=== PATIENT | female | born 1940 | race Caucasian/White ===

== ENCOUNTER 2018-05-19 15:46 | Outpatient (CLI) | payer OTHER ==
--- NOTE | 2018-05-19 16:15 | XRAY Report ---
Reason: COUGH,WHEEZING,FEVER Procedure Date: 05/19/2018 Accession Number: [id number] / [id number] Procedure: XR - Chest 2 View X-Ray CPT Code: 11466 FULL RESULT: EXAM: CHEST RADIOGRAPHY EXAM DATE: 05/19/2018 03:57 PM. CLINICAL HISTORY: COUGH,WHEEZING,FEVER. COMPARISON: None. TECHNIQUE: 2 views. FINDINGS: Lungs/Pleura: No definite localized infiltrate, consolidation, effusion, or pneumothorax. Mediastinum: Heart and mediastinal contours are unremarkable. Other: Degenerative changes. Surgical clips in left axilla and breast. IMPRESSION: No acute disease. RADIA The call report notification system was initiated by Dr. Taj Carr at 04:13 PM on 05/19/2018.
== END 2018-05-19 15:47 | disposition home or self-care (01) ==
LOC: DI 15:46
PROVIDERS: ATTEND Family Medicine
DX: R05 Cough (principal); R09.89 Other specified symptoms and signs involving the circulatory and respiratory systems; R06.2 Wheezing; R50.9 Fever, unspecified
CPT/HCPCS: 71046

== ENCOUNTER 2018-12-22 08:10 | Outpatient (CLI) | payer OTHER ==
[2018-12-22 17:56] LABS: CHOL/HDL RATIO 4.4 (<4.4); CHOLESTEROL 287 mg/dL; HDL CHOLESTEROL 65 mg/dL; LDL CHOLESTEROL,CALCULATED 178 mg/dL; LDL/HDL RATIO 2.7 (<4.4); VLDL CHOLESTEROL 44 mg/dL
[2018-12-22 18:04] LABS: THYROID STIMULATING HORMONE 1.45 uIU/mL (0.34-5.60)
[2018-12-22 18:06] LABS: FREE T4 (FREE THYROXINE) 0.79 ng/dL (0.58-1.64)
[2018-12-22 18:11] LABS: FERRITIN 136.9 ng/mL (11.0-306.8); TOTAL T3 0.83 ng/mL (0.87-1.78)
[2018-12-22 18:17] LABS: HB2 TOTAL 14.7 g/dL; HEMOGLOBIN A1C 0.52 g/dL; HEMOGLOBIN A1C % 5.4 % (4.6-6.2)
[2018-12-23 10:06] LABS: HOMOCYSTEINE 7.9 umol/L (<10.4)
== END 2018-12-22 08:11 | disposition home or self-care (01) ==
LOC: LAB.S 08:10
PROVIDERS: ATTEND Family Medicine
DX: E55.9 Vitamin D deficiency, unspecified (principal); R73.09 Other abnormal glucose; D64.9 Anemia, unspecified; R53.83 Other fatigue; E03.9 Hypothyroidism, unspecified; E78.5 Hyperlipidemia, unspecified
CPT/HCPCS: 36415; 80061; 82306; 82626; 82728; 83036; 83090; 83721; 84439; 84443; 84480; 84481; 84482

== ENCOUNTER 2020-09-19 08:18 | Inpatient (IN) | payer MEDICARE, OTHER ==
--- NOTE | 2020-09-19 08:28 | ED Physician Documentation ---
PD HPI CHEST PAIN - Stated complaint Stated Complaint: CHEST TIGHT/LOW HEART RATE - History obtained from History obtained from: Patient - History of Present Illness Timing - onset: How many days ago (2-3 days of chest discomfort low anterior just below breasts, both left and right. No abd pain. Also noted on her smart watch that her HR was 40s this morning, usually is 60-80.) Timing - onset during: Rest, Light activity. No: Exertion Timing - duration: Minutes (tightness come and go initially, but more consistent since yesterday) Timing - details: Gradual onset, Still present, Waxing and waning Quality: Pressure, Tightness. No: Sharp, Tearing Location: Left chest (across the lower chest both sides, just under the breasts.), Right chest Radiation: No: Jaw, Neck, Back Improved by: No: Rest Worsened by: No: Exertion, Inspiration, Eating Associated symptoms: General Weakness. No: Shortness of air, Nausea, Feeling faint / dizzy, Palpitations (did not feel irregular heart rate but her smart watch noted that her heart rate was about 120 for short time during sleep last night and this moring was having episodes slow HR down to 40s without change in symptoms.) Similar symptoms before: Has not had sx before Recently seen: Not recently seen Review of Systems Constitutional: denies: Fever, Chills Nose: denies: Rhinorrhea / runny nose, Congestion Throat: denies: Sore throat Cardiac: reports: Chest pain / pressure. denies: Palpitations (noted her heart rate to be in 40s part of the morning. Watch HR monitor showed her HR to be about 120 for part of the night while she was sleeping.), Pedal edema, Calf pain Respiratory: denies: Cough GI: denies: Abdominal Pain, Nausea, Vomiting, Diarrhea Skin: denies: Rash Musculoskeletal: denies: Neck pain, Back pain Neurologic: denies: Focal weakness, Numbness, Near syncope, Confused, Headache PD PAST MEDICAL HISTORY - Past Medical History Cardiovascular: None Respiratory: None Neuro: None Endocrine/Autoimmune: None - Present Medications Home Medications: Ambulatory Orders Medication Instructions Recorded Confirmed No Known Home Medications 09/19/20 09/19/20 - Allergies Allergies/Adverse Reactions: Allergies Allergy/AdvReac Type Severity Reaction Status Date / Time Egg Derived Allergy Rash Verified 09/19/20 08:44 influenza virus vacc Allergy Itching Verified 09/19/20 08:44 trivalent, split PD ED PE NORMAL - Vitals Vital signs reviewed: Yes - General General: Alert and oriented X 3, No acute distress, Well developed/nourished - Neck Neck: Supple, no meningeal sign, No adenopathy - Cardiac Cardiac: RRR, Other (1/6 murmur left chest) - Respiratory Respiratory: Clear bilaterally - Abdomen Abdomen: Soft, Non tender - Derm Derm: Normal color, Warm and dry - Extremities Extremities: No tenderness to palpate, No edema, No calf tenderness / cord - Neuro Neuro: Alert and oriented X 3, No motor deficit, Normal speech Eye Opening: Spontaneous Motor: Obeys Commands Verbal: Oriented GCS Score: 15 Results - Vitals Vitals: Vital Signs - 24 hr 09/19/20 09/19/20 09/19/20 08:30 08:55 09:33 Temperature 36.4 C L Heart Rate 76 71 46 L Respiratory 21 17 15 Rate Blood Pressure 190/88 H 190/88 H 125/73 O2 Saturation 97 100 98 Oxygen O2 Source Room air - EKG (time done) 08:27 Rate: Rate (enter#) (64) Rhythm: NSR Reardan: Normal Intervals: Normal TN QRS: Normal Ischemia: Normal ST segments. No: ST elevation c/w ischemia, ST depression, T wave inversion (but flattened diffusely) 09:45 Rate: Rate (enter#) (86) Rhythm: Sinus bradycardia Reardan: Normal Intervals: Normal TN QRS: Normal Ischemia: Normal ST segments. No: ST elevation c/w ischemia, ST depression - Labs Labs: Laboratory Tests 09/19/20 09/19/20 09/19/20 09:07 09:07 09:07 WBC 5.2 RBC 4.58 Hgb 14.5 Hct 43.3 MCV 94.5 MCH 31.7 H MCHC 33.5 RDW 11.9 L Plt Count 289 MPV 9.3 Neut # (Auto) 2.7 Lymph # (Auto) 2.0 Crane # (Auto) 0.4 Eos # (Auto) 0.1 Baso # (Auto) 0.1 Absolute Nucleated RBC 0.00 Nucleated RBC % 0.0 Sodium 139 Potassium 4.1 Chloride 104 Carbon Dioxide 26 Anion Gap 9.0 BUN 18 Creatinine 0.8 Estimated GFR (MDRD) 70 L Glucose 107 H Calcium 9.2 Magnesium 2.2 Total Bilirubin 0.8 AST 24 ALT 22 Alkaline Phosphatase 64 Troponin I High Sens 10.2 B-Natriuretic Peptide Total Protein 6.7 Albumin 4.2 Globulin 2.5 Albumin/Globulin Ratio 1.7 Lipase 33 09/19/20 09:07 WBC RBC Hgb Hct MCV MCH MCHC RDW Plt Count MPV Neut # (Auto) Lymph # (Auto) Crane # (Auto) Eos # (Auto) Baso # (Auto) Absolute Nucleated RBC Nucleated RBC % Sodium Potassium Chloride Carbon Dioxide Anion Gap BUN Creatinine Estimated GFR (MDRD) Glucose Calcium Magnesium Total Bilirubin AST ALT Alkaline Phosphatase Troponin I High Sens B-Natriuretic Peptide 539 H Total Protein Albumin Globulin Albumin/Globulin Ratio Lipase - Rads (name of study) chest xray Radiology: Prelim report reviewed (no acute process), See rad report PD MEDICAL DECISION MAKING - ED course Complexity details: reviewed results, re-evaluated patient (She had imp;rovement in the chest discomfort with NTG. She had episode of HR going down to 40s, slowly and then back up to 60s after 5-10 minutes. No change in vector noted. She did not have symptoms with that. ), considered differential (chest discomfort, nonexertional with neg troponin. However, having intermittent bradycardia (Wenckebach?) so concern for ischemia. No medications to cause heart block. ), d/w patient Departure - Departure Disposition: ED Place in Observation Clinical Impression: Chest discomfort, Bradycardia Condition: Stable Record reviewed to determine appropriate education?: Yes Discharge Date/Time: 09/19/20 11:16
[2020-09-19] MEDS ORDERED: NITROGLYCERIN SL 0.4 MG TABLET SL STA (08:59)
[2020-09-19 09:13] LABS: BASOPHILS # (AUTO) 0.1 10^3/uL (0.0-0.1); BASOPHILS % (AUTO) 1.3 %; EOSINOPHILS # (AUTO) 0.1 10^3/uL (0.0-0.7); EOSINOPHILS % (AUTO) 1.7 %; HCT - HEMATOCRIT 43.3 % (37.0-47.0); HGB - HEMOGLOBIN 14.5 g/dL (12.0-16.0); LYMPHOCYTES % (AUTO) 37.5 %; MEAN CORPUSCULAR HEMOGLOBIN 31.7 pg (27.0-31.0); MEAN CORPUSCULAR HGB CONC 33.5 g/dL (32.0-36.0); MEAN CORPUSCULAR VOLUME 94.5 fL (81.0-99.0); MEAN PLATELET VOLUME 9.3 fL (7.9-10.8); MONOCYTES # (AUTO) 0.4 10^3/uL (0.0-1.0); MONOCYTES % (AUTO) 8.3 %; NEUTROPHILS # (AUTO) 2.7 10^3/uL (1.5-6.6); PLT - PLATELET COUNT 289 10^3/uL (130-450); RED BLOOD COUNT 4.58 10^6/uL (4.20-5.40); RED CELL DISTRIBUTION WIDTH 11.9 % (12.0-15.0); WHITE BLOOD COUNT 5.2 x10^3/uL (4.8-10.8)
[2020-09-19 09:29] LABS: ALBUMIN 4.2 g/dL (3.2-5.5); ALBUMIN/GLOBULIN RATIO 1.7 (1.0-2.2); BILIRUBIN,TOTAL 0.8 mg/dL (0.2-1.0); CALCIUM 9.2 mg/dL (8.5-10.3); CREATININE 0.8 mg/dL (0.4-1.0); MAGNESIUM 2.2 mg/dL (1.7-2.8); POTASSIUM 4.1 mmol/L (3.5-5.0); TOTAL PROTEIN 6.7 g/dL (6.7-8.2)
--- NOTE | 2020-09-19 10:01 | XRAY Report ---
PROCEDURE: Chest 1 View X-Ray INDICATIONS: Chest Pain TECHNIQUE: One view of the chest was acquired. COMPARISON: 2 view chest 05/19/2018 FINDINGS: Surgical changes and devices: None. Lungs and pleura: No pleural effusions or pneumothorax. Lungs are clear. Mediastinum: Mediastinal contours appear normal. Heart size is normal. Bones and chest wall: No suspicious bony lesions. Overlying soft tissues appear unremarkable. IMPRESSION: Surgical clips left lateral breast area, suggestive of prior breast carcinoma surgery. No evidence of metastatic disease. Source of current symptoms is not found. Reviewed by: Lazaro Clancy MD on 09/19/2020 9:59 AM PDT Approved by: Lazaro Clancy MD on 09/19/2020 9:59 AM PDT Station ID: [id number]
[2020-09-19] MEDS ORDERED: ONDANSETRON 4 MG/2 ML VIAL IVP PRN (10:13)
[2020-09-19] MEDS ORDERED: ACETAMINOPHEN 325 MG TABLET PO PRN (10:13)
[2020-09-19] MEDS ORDERED: MORPHINE 2 MG/ML CARPUJECT IVP PRN ×2 (10:13→11:59)
[2020-09-19] MEDS ORDERED: SODIUM CHLORIDE FLUSH 0.9% 10 ML SYRINGE IVP PRN (10:13)
[2020-09-19] MEDS ORDERED: ASPIRIN 325 MG TABLET PO STA (10:20)
--- NOTE | 2020-09-19 10:45 | HISTORY & PHYSICAL EXAMINATION ---
Chief Complaint - Chief Complaint Chief Complaint: chest tightness and bradycardia History of Present Illness - Admitted From Admitted From:: Pt - History Obtained From Records Reviewed: [facility] History obtained from: pt Exam Limitations: no - History of Present Illness HPI Comment/Other: This is a 79-years old female without significantly medical history who present to ER complain of chest tightness and bradycardia. pt report she had chest discomfort and chest tightness for 2-3 days. she report the discomfort locates bilateral low anterior and just below breasts. She denies shortness of breath, fever, chill, abdominal pain, nausea or vomiting. She report she usually had 60- 80 heart rate but she report her HR was 40s in this morning when she watch her Smart watch. Her initiated troponin was 10.2, in normal range. Chest x-ray show surgical clips left laterally breast area, suggestive of prior Breast carcinoma surgery, no evidence of metastatic disease, Source of currently symptoms is not found. First EKG show sinus rhythm at heart rate 64. Repeat EKG show Sinus bradycardia at HR 46. Patient reported she did not take any medication right now. she take her blood pressure medicine in the before but after she had diet control, she does not need blood pressure medicine. Discussed the care goal with patient, patient would like to have full code now. Pt state if she does not have quality life at the time, her son will make the decision for her. History - Past Medical History MRSA Hx?: No - Family & Social History Family History: Mother: , Father: Family History Comment/Other: Patient report her father at age 56 from heart failure. Her mother at the age 102. Her brother at age 81 from diabetic and heart failure Social History Notes: Patient reported she quit cigarette smoking about 40 years ago, she denied alcohol or drug issue Meds/Allgy - Home Medications Home Medications: Ambulatory Orders Medication Instructions Recorded Confirmed No Known Home Medications 09/19/20 09/19/20 - Allergies Allergies/Adverse Reactions: Allergies Allergy/AdvReac Type Severity Reaction Status Date / Time Egg Derived Allergy Rash Verified 09/19/20 08:44 influenza virus vacc Allergy Itching Verified 09/19/20 08:44 trivalent, split Review of Systems - Constitutional Constitutional: denies: Fatigue, Fever, Chills, Weakness, Poor appetite - Eyes Eyes: denies: Pain, Blurred vision, Field loss, Vision loss - Ears, Nose & Throat Ears, Nose & Throat: denies: Ear pain, Nosebleeds, Bleeding gums - Cardiovascular Cariovascular: reports: Chest pain. denies: Irregular heart rate, Palpitations, Edema, Lightheadedness, Syncope, Exertional dyspnea, Decr. exercise tolerance - Respiratory Respiratory: denies: Cough, Sputum production, Wheezing, Hemoptysis, Orthopnea, SOB at rest, SOB with exertion - Gastrointestinal Gastrointestinal: denies: Abdominal pain, Diarrhea, Black stools, Nausea, Vomiting - Genitourinary Genitourinary: denies: Dysuria, Incontinence, Flank pain - Musculoskeletal Musculoskeletal: denies: Muscle pain, Muscle aches, Limited range of motion - Integumentary Integumentary: denies: Rash, Lesions, Lumps - Neurological Neurological: denies: General weakness, Focal weakness, Headache, Dizziness, Numbness, Pre-existing deficit, Abnormal gait, Seizures, Incoordination, Slurred speech - Psychiatric Psychiatric: denies: Depression, Delusions - Endocrine Endocrine: denies: Polyuria - Hematologic/Lymphatic Hematologic/Lymphatic: denies: Anemia, Blood clots Prior Level of Functionality: Patient is independent at home Exam - Vital Signs Vital Signs: Vital Signs x48h Temp Pulse Resp BP Pulse Ox 09/19/20 09:33 46 L 15 125/73 98 09/19/20 08:55 71 17 190/88 H 100 09/19/20 08:30 36.4 C L 76 21 190/88 H 97 - Physical Exam General Appearance: positive: No acute distress, Alert. negative: Lethargic Eyes Bilateral: positive: Normal inspection, PERRL, No lid inflammation ENT: positive: ENT inspection nml, No signs of dehydration. negative: Purulent nasal drainage Neck: positive: Nml inspection, Trachea midline. negative: Thyromegaly, Tracheal deviation Respiratory: positive: Chest non-tender, No respiratory distress, Breath sounds nml. negative: Wheezes, Rales Cardiovascular: positive: Regular rate & rhythm, No murmur, Bradycardia. negative: Tachycardia, Systolic murmur, Diastolic murmur Peripheral Pulses: positive: 2+ Abdomen: positive: Non-tender, Nml bowel sounds, No distention. negative: Tenderness Back: positive: Nml inspection Skin: positive: Color nml, Warm, Dry. negative: Cyanosis Extremities: positive: Non-tender, Full ROM, Nml appearance. negative: No pedal edema Neurologic/Psychiatric: positive: Oriented x3, Motor nml, Sensation nml, M ood/affect nml. negative: Weakness, Sensory loss, Facial droop, Slurred/abnml speech, Depressed mood/affect Conclusion/Plan - Problem List (1) Chest discomfort Conclusion/Plan: Patient report chest discomfortable for 2 or 3 days. Patient denies shortness of breathing, abdominal pain, nausea, vomiting Associated with chest discomfortable. Chest discomfortable location at bilaterally below breast, No radiating pain. Initiate troponin is negative. We will repeat troponin test, we will do stress test for patient this afternoon, order Aspirin, Morphine and Nitro PRN, tele and vital sign monitor pt. (2) Bradycardia Conclusion/Plan: EKG once show Sinus bradycardia at heart rate 46. Patient denies dizziness, lightheaded. Patient did not take any beta-shar in the home. 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 (3) HTN (hypertension) Conclusion/Plan: Patient show elevated blood pressure, patient did not take any blood pressure medicine in the home, we will start with hydralazine PRN. Continue vital signs monitor for patient - Lab Results Fish Bones: 09/19/20 09:07 09/19/20 09:07 Core Measures - Anticipated LOS I expect patient to be DC'd or transferred within 96 hours.: Yes - DVT/VTE - Prophylaxis VTE/DVT Device ordered at admit?: Yes VTE/DVT Prophylaxis med ordered at admit?: Yes
[2020-09-19 11:24] LABS: B. PARAPERTUSSIS- RESP PCR PAN NOT DETECTED; B. PERTUSSIS- RESP PCR PANEL NOT DETECTED; C. PNEUMONIAE- RESP PCR PANEL NOT DETECTED; CORONAVIRUS 229E-RESP PCR NOT DETECTED; CORONAVIRUS HKU1-RESP PCR NOT DETECTED; CORONAVIRUS NL63-RESP PCR NOT DETECTED; CORONAVIRUS OC43-RESP PCR NOT DETECTED; HUMAN METAPNEUMOVIRUS NOT DETECTED; INFLUENZA A- RESP PCR PANEL NOT DETECTED; INFLUENZA B - RESP PCR PANEL NOT DETECTED; M. PNEUMONIAE- RESP PCR PANEL NOT DETECTED; PARAINFLUENZA VIRUS 1 NOT DETECTED; PARAINFLUENZA VIRUS 2 NOT DETECTED; PARAINFLUENZA VIRUS 3 NOT DETECTED; PARAINFLUENZA VIRUS 4 NOT DETECTED; RHINOVIRUS/ENTEROVIRUS NOT DETECTED; RSV- RESP PCR PANEL NOT DETECTED; SARS-CoV-2 -RESP PCR PANEL NOT DETECTED
[2020-09-19] MEDS ORDERED: NITROGLYCERIN SL 0.4 MG TABLET SL PRN (11:59)
[2020-09-19] MEDS ORDERED: hydrALAZINE INJ 20 MG/ML VIAL IVP PRN (13:04)
[2020-09-19] MEDS ORDERED: ASPIRIN 325 MG TABLET PO SCH (14:00)
--- NOTE | 2020-09-19 15:52 | CARDIAC PROCEDURE NOTE ---
Stress Test Report Service Date: 09/19/20 Indication for Test: Chest pain Cardiac Risk Factors: HTN (currently untreated), family history of heart disease, Hx of elevated cholesterol (also untreated). Type of Stress Test: ETT with Myocardial Perfusion Imaging Procedure: After signing informed consent, the patient underwent a Franky-protocol treadmill stress test with nuclear myocardial perfusion imaging. Resting heart rate: 75 Peak heart rate: 131 (91% predicted maximum hewart rate for age), then went into SVT at rate 160. Sitting resting blood pressure supine: 196/60, standing resting BP: 161/101 Peak BP: 227/88 The patient described no chest pain at rest. Then when she stood up she described 1-3/10 chest pain that was a "band-like pressure as if she had on a tight bra". This is the same feeling she has had nearly continuously for 7 days. We proceeded with stress testing. The patient exercised for 4 minutes and 28 sec on a Franky-protocol treadmill stress test. She achieved a peak heart rate of 131 (91% PMHR) and in early recovery (at 1 min-post exercise) she had an 18-beat run of SVT at a rate of 160. The patient had mild shortness of breath at peak exercise and no changes in her chest pain throughout exercise, rated 3/10 and it continued unchanged all throughout recovery. Blood pressure response to exercise was excessive. The patient described her perceived exertion as 14/20 at peak on the Hector scale. Resting EKG: Normal sinus rhythm, rate 75, U waves present, early R/S transition, flat T waves in diffuse leads. Patient had a 7 beat run of SVT pre-exercise, it's rate was 145. During exe rcise she had occasional PACs, a run of ventricular trigeminy, ventricular couplets at peak exercise and a run of SVT just after peak exercise, of 18 beats at a rate of 160. Peak EKG: No new ST segment changes, unchanged diffuse T wave flattening. Summary: 1) Abnormal resting EKG 2) Chest pain was present at rest, unchanged during exercise and continued in recovery. This is atypical for angina pain. 3) Nonspecific EKG changes develop are present at rest and are unchanged with exercise. 4) PSVT seen at rest. Ventricular couplets seen at peak stage of exercise. P SVT of longer duration seen at peak exercise/immediate recovery. 5) Patient is hypertensive at rest and with exercise. 6) Nuclear images were reported separately and showed: No areas of abnormal upt rylee to suggest ischemia or infarction, LVEF is hyperdynamic at 92%. 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 2) HTN, uncontrolled. 3) This patient's cardiac risk: Moderate. RECOMMENDATIONS (she is in Observation status in the hospital): 1) Start low-dose heart rate slowing meds while being monitored on telemetry, watching for severe bradycardia. 2) If has severe bradycardia, she will need transfer for insertion of a pacemaker.
[2020-09-19] MEDS ORDERED: SODIUM CHLORIDE 0.9% 1,000 ML IV SCH (17:00)
--- NOTE | 2020-09-19 17:00 | Nuclear Medicine Report ---
PROCEDURE: Rest and exercise myocardial perfusion SPECT with gated imaging and ejection fraction INDICATIONS: chest pain RADIOPHARMACEUTICAL: 13.2 mCi Tc-99m Myoview IV at rest and 39.6 mCi Tc-99m Myoview IV at peak exerc ise. [id number]-rpo-rtorilnl was performed. TECHNIQUE: Radiopharmaceutical was injected at peak stress test, and also at rest. SPECT images wer e obtained. SPECT myocardial perfusion images were displayed in short axis, horizontal long axis, an d vertical long axis views. Gated images were reviewed using [employer] software. COMPARISON: None available. FINDINGS: Raw data: There is good myocardial labeling by radiotracer. No significant motion artifacts. Lung- to-heart ratio is 0.32 (normal is less than 0.46 for tetrafosmin tracer). Left ventricle function: Gated images demonstrate normal left ventricle wall thickening. No segment al wall motion abnormality. No transient ischemic dilation; TID is 1.16 (normal less than 1.30). Th e left ventricle resting end-diastolic volume is normal. Left ventricle stress ejection fraction is greater than 70%; normal values are above 45%. Myocardial perfusion: There is normal distribution of activity in the left and right ventricular sharron cardium. No fixed or reversible perfusion defects. IMPRESSION: 1. Normal myocardial perfusion images. No perfusion defect to suggest myocardial ischemia or infarct. 2. Normal left ventricular volume and systolic function. 3. Please correlate with stress EKG result. PQRS ATTESTATIONS: Measure 322 - Is this imaging test primarily performed on a low-risk surgery patient for preoperative evaluation within 30 days preceding their low-risk non-cardiac surgery? Low-risk surgery is defined as cardiac or myocardial infarction less than 1%, including (but not limited to) endoscopic pr ocedures, superficial procedures, cataract surgery, and excisional breast surgery: Answer: No Measure 323 - Is this imaging test performed primarily for the monitoring of an asymptomatic patient who had percutaneous coronary intervention on the visit date or within 2 years of the visit date? An swer: No Measure 324 - Is this imaging test performed primarily for the initial detection and risk assessment on an asymptomatic, low coronary heart disease patient? Low CHD risk definition = clinicians should consider the maximum number of available patient factors used to estimate risk based on [place] (A TP III criteria), typically age, gender, diabetes, smoking status, and use of blood pressure medicati on, and integrate age appropriate estimates for missing elements, such as LDL or standard blood press ure. Answer: No Reviewed by: Sujit Diop MD on 09/19/2020 4:58 PM PDT Approved by: Sujit Diop MD on 09/19/2020 4:58 PM PDT Station ID: [id number]
[2020-09-19] MEDS: SODIUM CHLORIDE FLUSH 0.9% 10 ML SYRINGE IVP SCH (17:13)
[2020-09-19] MEDS: LACTATED RINGERS 1,000 ML IV SCH (18:54)
[2020-09-19] MEDS: carvediloL 3.125 MG TABLET PO SCH (21:23)
[2020-09-20] MEDS: SODIUM CHLORIDE FLUSH 0.9% 10 ML SYRINGE IVP SCH ×4 (01:20→23:56)
[2020-09-20] MEDS: LACTATED RINGERS 1,000 ML IV SCH (03:43)
[2020-09-20 06:13] LABS: BASOPHILS % (AUTO) 0.9 %; EOSINOPHILS # (AUTO) 0.1 10^3/uL (0.0-0.7); EOSINOPHILS % (AUTO) 2.3 %; HCT - HEMATOCRIT 39.8 % (37.0-47.0); HGB - HEMOGLOBIN 12.8 g/dL (12.0-16.0); LYMPHOCYTES # (AUTO) 1.9 10^3/uL (1.5-3.5); LYMPHOCYTES % (AUTO) 40.3 %; MEAN CORPUSCULAR HEMOGLOBIN 30.5 pg (27.0-31.0); MEAN CORPUSCULAR HGB CONC 32.2 g/dL (32.0-36.0); MEAN CORPUSCULAR VOLUME 94.8 fL (81.0-99.0); MEAN PLATELET VOLUME 9.6 fL (7.9-10.8); MONOCYTES # (AUTO) 0.4 10^3/uL (0.0-1.0); MONOCYTES % (AUTO) 8.7 %; NEUTROPHILS # (AUTO) 2.2 10^3/uL (1.5-6.6); NEUTROPHILS % (AUTO) 47.6 %; PLT - PLATELET COUNT 258 10^3/uL (130-450); RED CELL DISTRIBUTION WIDTH 11.9 % (12.0-15.0); WHITE BLOOD COUNT 4.7 x10^3/uL (4.8-10.8)
[2020-09-20 06:24] LABS: CALCIUM 8.4 mg/dL (8.5-10.3); CREATININE 0.7 mg/dL (0.4-1.0)
[2020-09-20 06:39] LABS: CHOL/HDL RATIO 4.6 (<4.4); CHOLESTEROL 229 mg/dL; HDL CHOLESTEROL 50 mg/dL; LDL CHOLESTEROL,CALCULATED 151 mg/dL; TRIGLYCERIDES 140 mg/dL; VLDL CHOLESTEROL 28 mg/dL
[2020-09-20] MEDS ORDERED: ASPIRIN CHEW 81 MG TABLET PO SCH (09:00)
[2020-09-20] MEDS: carvediloL 3.125 MG TABLET PO SCH (09:03)
[2020-09-20] MEDS: ENOXAPARIN 40 MG/0.4 ML SYRINGE SUBQ SCH (09:04)
--- NOTE | 2020-09-20 14:25 | PROVIDER PROGRESS NOTE ---
Assessment/Plan - Problem List (1) Junctional bradycardia Assessment/Plan: By starting a low-dose of beta-shar to suppress the PSVT, she has been in junctional bradycardia rates of 40 (no P waves, junctional escape rhythm at a rate of 40) for about 6 hours. I contacted Cardiology (she wants to start being taken care of by the [facility] group) and spoke to their on-call batteryman, Dr. Toledo. He advised decreasing the treatment to just once in the morning, not twice daily. Continue with telemetry. Because this is sinus arrest, with junctional escape, it is an unstable rhythm and I will make her an inpatient. If the above new management still creates junctional bradycardia, she will be in need of a permanent pacemaker implant. I am to call their group tomorrow and give him an update and possibly she will be accepted for transfer for pacemaker implant. All of the above was discussed with the patient and her [id number] who is at the bedside, and they are agreeable with the plan. (2) PSVT (paroxysmal supraventricular tachycardia) Assessment/Plan: By starting Coreg 3.125 twice daily, we have suppressed her PSVT completely, they are not seen on telemetry, which I reviewed in detail with the telemetry PACKING MACHINE OPERATOR. She is not hyperthyroid, her TSH is WNL. (3) SSS (sick sinus syndrome) Assessment/Plan: The combination of tachycardia and bradycardia gives her sick sinus syndrome, by definition. The patient was able to get her smart watch to display her heart rate trends since she has worn it, in 2019. She has a range of heart rates between 40 and 170 for the last 2 years in fact, but has only noticed fatigue during this month. This month was also when she has first reached 188 as her maximum heart rate. (4) HTN (hypertension) Assessment/Plan: Patient used to have high blood pressure that was controlled on BRENDEN inhibitor's. She lost weight and states the BP meds were stopped. She has been very hypertensive intermittently while here. The beta-shar has helped her BP somewhat (5) Hyperlipidemia Assessment/Plan: A fasting lipid panel was checked as part of the chest pain work-up. She has a very high LDLs. She states that she is started to manage this just over the past 2 weeks by working with her software tools engineer PCP: She has eliminated red meat and has decreased her cheeses and dairy products. She also is about to start red yeast rice. She does not want to start a statin at this time. (6) Atypical chest pain Assessment/Plan: She thinks she notices this CP when she has bad posture, sitting in her chair. The pattern is not at all of angina. Today she underwent a complete treadmill stress test with nuclear myocardial perfusion imaging. The images showed no areas of ischemia or infarction. She thinks it is different than her GERD pain as well. Nitroglycerin sl seem to help it in the ED but it returned and is again constant. We therefore discussed if this could be esophageal spasm (which sl NTG treats), but she has no trouble with swallowing or other symptoms like coughing after food. She states she will try to watch her posture and will see her chiropractor for further evaluation of this. - Current Meds Current Meds: Current Medications Generic Name Dose Route Start Last Admin Trade Name Freq PRN Reason Stop Dose Admin Enoxaparin Sodium 40 mg 09/20/20 09:00 09/20/20 09:04 Enoxaparin 40 Mg/0.4 Ml Syringe SUBQ 40 mg DAILY ZOË Administration Sodium Chloride 10 ml 09/19/20 17:00 09/20/20 09:04 Sodium Chloride Flush 0.9% 10 Ml Syringe IVP Not Given 0100,0900,1700 ZOË - Lab Result Fish Bone Diagrams: 09/20/20 05:52 09/20/20 05:52 - Additional Planning My Orders: My Active Orders 09/20/20 Breakfast DIET [Low Sodium Diet] [DIET] 09/20/20 14:19 Admit \\ Transfer \\ Status [RC] .ONCE 09/21/20 09:00 carvediloL [Coreg] 3.125 mg PO DAILY Subjective - Subjective Patient Reports: Feeling Better, Pain (She still gets chest pain in her lower rib cage like a "tight bra" and notices that it is in certain positions of her spine) Objective Vital Signs: Vital Signs - 24 hr 09/19/20 09/19/20 09/20/20 15:50 20:56 01:00 Temperature 36.7 C 37.0 C 36.3 C L Heart Rate [ 61 64 58 L Brachial] Respiratory 18 18 18 Rate Blood Pressure [Left Brachial artery] Blood Pressure 115/51 L [Right Brachial artery] Blood Pressure 156/77 H 146/57 H [Right] O2 Saturation 100 96 98 09/20/20 09/20/20 09/20/20 03:37 07:42 13:29 Temperature 36.6 C 36.7 C 37 C Heart Rate [ 55 L 61 63 Brachial] Respiratory 17 20 16 Rate Blood Pressure 112/56 L [Left Brachial artery] Blood Pressure 139/59 H 144/67 H 120/47 L [Right Brachial artery] Blood Pressure [Right] O2 Saturation 96 98 100 Oxygen O2 Source Room air I&O (Last 24 Hrs): Intake and Output Totals x24h 09/18/20 09/19/20 09/20/20 23:59 23:59 23:59 Intake Total 315 2081.667 Balance 315 2081.667 General: Alert, Oriented x3 HEENT: EOMI, Mucous membr. moist/pink Neck: Supple, No JVD Neuro: Alert, Non Focal Cardiovascular: Regular rate, No murmurs Respiratory: No respiratory distress Abdomen: Soft Extremities: No edema - Results Results: Laboratory Results WBC 4.7 x10^3/uL (4.8-10.8) L 09/20/20 05:52 RBC 4.20 10^6/uL (4.20-5.40) 09/20/20 05:52 Hgb 12.8 g/dL (12.0-16.0) 09/20/20 05:52 Hct 39.8 % (37.0-47.0) 09/20/20 05:52 MCV 94.8 fL (81.0-99.0) 09/20/20 05:52 MCH 30.5 pg (27.0-31.0) 09/20/20 05:52 MCHC 32.2 g/dL (32.0-36.0) 09/20/20 05:52 RDW 11.9 % (12.0-15.0) L 09/20/20 05:52 Plt Count 258 10^3/uL (130-450) 09/20/20 05:52 MPV 9.6 fL (7.9-10.8) 09/20/20 05:52 Neut # (Auto) 2.2 10^3/uL (1.5-6.6) 09/20/20 05:52 Lymph # (Auto) 1.9 10^3/uL (1.5-3.5) 09/20/20 05:52 [place] # (Auto) 0.4 10^3/uL (0.0-1.0) 09/20/20 05:52 Eos # (Auto) 0.1 10^3/uL (0.0-0.7) 09/20/20 05:52 Baso # (Auto) 0.0 10^3/uL (0.0-0.1) 09/20/20 05:52 Absolute Nucleated RBC 0.00 x10^3/uL 09/20/20 05:52 Nucleated RBC % 0.0 /100WBC 09/20/20 05:52 Sodium 141 mmol/L (135-145) 09/20/20 05:52 Potassium 4.0 mmol/L (3.5-5.0) 09/20/20 05:52 Chloride 108 mmol/L (101-111) 09/20/20 05:52 Carbon Dioxide 27 mmol/L (21-32) 09/20/20 05:52 Anion Gap 6.0 (6-13) 09/20/20 05:52 BUN 13 mg/dL (6-20) 09/20/20 05:52 Creatinine 0.7 mg/dL (0.4-1.0) 09/20/20 05:52 Estimated GFR (MDRD) 81 (>89) L 09/20/20 05:52 Glucose 98 mg/dL (70-100) 09/20/20 05:52 Calcium 8.4 mg/dL (8.5-10.3) L 09/20/20 05:52 Magnesium 2.2 mg/dL (1.7-2.8) 09/19/20 09:07 Total Bilirubin 0.8 mg/dL (0.2-1.0) 09/19/20 09:07 AST 24 IU/L (10-42) 09/19/20 09:07 ALT 22 IU/L (10-60) 09/19/20 09:07 Alkaline Phosphatase 64 IU/L (42-121) 09/19/20 09:07 Troponin I High Sens 12.6 ng/L (2.3-14.8) 09/19/20 15:21 B-Natriuretic Peptide 539 pg/mL (5-100) H 09/19/20 09:07 Total Protein 6.7 g/dL (6.7-8.2) 09/19/20 09:07 Albumin 4.2 g/dL (3.2-5.5) 09/19/20 09:07 Globulin 2.5 g/dL (2.1-4.2) 09/19/20 09:07 Albumin/Globulin Ratio 1.7 (1.0-2.2) 09/19/20 09:07 Triglycerides 140 mg/dL (-149) 09/20/20 05:52 Cholesterol 229 mg/dL (-199) H 09/20/20 05:52 LDL Cholesterol, Calc 151 mg/dL (-129) H 09/20/20 05:52 VLDL Cholesterol 28 mg/dL 09/20/20 05:52 HDL Cholesterol 50 mg/dL (60-) L 09/20/20 05:52 LDL/HDL Ratio 3.0 (<4.4) 09/20/20 05:52 Cholesterol/HDL Ratio 4.6 (<4.4) 09/20/20 05:52 Lipase 33 U/L (22-51) 09/19/20 09:07 TSH 2.14 uIU/mL (0.34-5.60) 09/20/20 05:52 Nasal Adenovirus (PCR) NOT DETECTED 09/19/20 10:25 Nasal B. parapertussis DNA (PCR) NOT DETECTED 09/19/20 10:25 Nasal Coronavir 229E PCR NOT DETECTED 09/19/20 10:25 Nasal Coronavir HKU1 PCR NOT DETECTED 09/19/20 10:25 Nasal Coronavir NL63 PCR NOT DETECTED 09/19/20 10:25 Nasal Coronavir OC43 PCR NOT DETECTED 09/19/20 10:25 Nasal Enterovir/Rhinovir PCR NOT DETECTED 09/19/20 10:25 Nasal Influenza B PCR NOT DETECTED 09/19/20 10:25 Nasal Influenza A PCR NOT DETECTED 09/19/20 10:25 Nasal Parainfluen 1 PCR NOT DETECTED 09/19/20 10:25 Nasal Parainfluen 2 PCR NOT DETECTED 09/19/20 10:25 Nasal Parainfluen 3 PCR NOT DETECTED 09/19/20 10:25 Nasal Parainfluen 4 PCR NOT DETECTED 09/19/20 10:25 Nasal RSV (PCR) NOT DETECTED 09/19/20 10:25 Nasal B.pertussis DNA PCR NOT DETECTED 09/19/20 10:25 Nasal C.pneumoniae (PCR) NOT DETECTED 09/19/20 10:25 Dave Human Metapneumo PCR NOT DETECTED 09/19/20 10:25 Nasal M.pneumoniae (PCR) NOT DETECTED 09/19/20 10:25 Nasal SARS-CoV-2 (PCR) NOT DETECTED 09/19/20 10:25
[2020-09-21 06:53] LABS: BASOPHILS % (AUTO) 0.9 %; EOSINOPHILS # (AUTO) 0.1 10^3/uL (0.0-0.7); EOSINOPHILS % (AUTO) 2.8 %; HCT - HEMATOCRIT 40.2 % (37.0-47.0); HGB - HEMOGLOBIN 13.6 g/dL (12.0-16.0); LYMPHOCYTES % (AUTO) 43.9 %; MEAN CORPUSCULAR HEMOGLOBIN 31.7 pg (27.0-31.0); MEAN CORPUSCULAR HGB CONC 33.8 g/dL (32.0-36.0); MEAN CORPUSCULAR VOLUME 93.7 fL (81.0-99.0); MEAN PLATELET VOLUME 9.6 fL (7.9-10.8); MONOCYTES # (AUTO) 0.4 10^3/uL (0.0-1.0); NEUTROPHILS % (AUTO) 43.2 %; PLT - PLATELET COUNT 246 10^3/uL (130-450); RED BLOOD COUNT 4.29 10^6/uL (4.20-5.40); RED CELL DISTRIBUTION WIDTH 11.9 % (12.0-15.0); WHITE BLOOD COUNT 4.6 x10^3/uL (4.8-10.8)
[2020-09-21 07:02] LABS: CALCIUM 8.6 mg/dL (8.5-10.3); CREATININE 0.7 mg/dL (0.4-1.0); POTASSIUM 3.8 mmol/L (3.5-5.0)
[2020-09-21] MEDS: ENOXAPARIN 40 MG/0.4 ML SYRINGE SUBQ SCH (08:41)
[2020-09-21] MEDS: SODIUM CHLORIDE FLUSH 0.9% 10 ML SYRINGE IVP SCH (08:42)
[2020-09-21] MEDS ORDERED: carvediloL 3.125 MG TABLET PO SCH (09:00)
--- NOTE | 2020-09-21 13:32 | Discharge Plan ---
Discharge Plan Problem Reviewed?: Yes Disposition: 02 Transfer Acute Care Hosp Condition: Stable No Smoking: If you smoke, Please STOP! Call for help. Follow-up with: Monica Caban ND [Primary Care Provider] -
--- NOTE | 2020-09-21 13:32 | DISCHARGE SUMMARY ---
Discharge Summary Admit Date: 09/19/20 Discharge Date: 09/21/20 Discharging Provider: Dr Socorro Reynoso Primary Care Provider: Monica Caban [place] ([place], [place]) Code Status: Attempt Resuscitation Condition at Discharge: Stable Discharge Disposition: 02 Transfer Acute Care Hosp - [facility] History of Present Illness: From the admission H&P of Jonatan Velasco NP: This is a 79-year old white female without significantly medical history who present to ER complaining of chest tightness and bradycardia, that she noticed on her SmartWatch. She reports she has been gaving constant chest discomfort and chest tightness for several days. She reports the discomfort located bi laterally at low chest and just below both breasts. She denies shortness of breath, fever, chills, cough, abdominal pain, nausea or vomiting. She report she usually had heart rate 60-80 but her HR was in the 40s on her SmartWatch this morning when she checked it. Her initiated troponin was 10.2, in normal range. Chest x-ray show surgical clips left laterally breast area, suggestive of prior Breast carcinoma surgery, no evidence of metastatic disease, and source of currently symptoms is not found. First EKG showed sinus rhythm at heart rate 64. Repeat EKG show sinus bradycardia at HR 46. Patient reported she does not take any medication right now, she used to take blood pressure medicine in the past, but after she lost weight, she does not need blood pressure medicine. We discussed the care goals, patient would like to have full code now. Pt stated if she does not have quality life, at that time, her son will make the decision for her. - HOSPITAL COURSE Hospital Course: (1) Junctional bradycardia She was put on telemetry, troponins were ordered that were neg, and underwent a stress test. With exercise, she had symptomatic long runs of SVT at rates of 140 and 240. She was carefully started on a low-dose of beta-shar (Coreg 3.125 b.i.d.) to suppress the PSVT (see below). This suppressed her PSVTs entirely, but since she had more junctional bradycardia at rates of 40 (junctional escape rhythm with no P waves), Hospitalist contacted Cardiology (she wants to start being taken care of by the [facility] group) and spoke to their on-call sole ruffer, Dr. Toledo. He advised decreasing the treatment to just once in the morning, not twice daily. She was admitted to Inpatient status from Observation, since junctional escape is an unstable rhythm. The next day, her PSVTs were still suppressed but junctional escape was still present alot, and we spoke to Cardiology. She was kindly accepted in transfer to Dr Mcdonald's service at [facility] and transferred there by ambulance in stable condition, for a likely permanent pacemaker implant. (2) PSVT (paroxysmal supraventricular tachycardia) After troponins came back normal, she had a stress test and during exercise and at peak, she had symptomatic long runs of SVT at rates of 140 and 240. By starting Coreg 3.125 twice daily, we suppressed her PSVT completely, as per telemetry. We then decreased the treatment to just once in the morning (see above). She is not hyperthyroid, her TSH is WNL. (3) SSS (sick sinus syndrome) The combination of tachycardia and bradycardia gives her sick sinus syndrome, by definition. The patient was able to get her SmartWatch to display her heart rate trends since she has worn it, in 2019. She has a range of heart rates between 40 and 170 for the last 2 years in fact, but has only noticed fatigue during this month. This month was also when she has first reached 188 as her maximum heart rate. (4) HTN (hypertension) Patient used to have high blood pressure that was controlled on BRENDEN inhibitor's. She lost weight and states the BP meds were stopped. She was very hypertensive intermittently while here. The beta-shar helped her BP somewhat. (5) Hyperlipidemia A fasting lipid panel was checked as part of the chest pain work-up. She has a very high LDL of 151.. She states that she has just started to manage this by diet over the past 2 weeks, by working with her noc engineer PCP: she has eliminated red meat and has decreased her cheeses and dairy products. She also is about to start red yeast rice. She does not want to start a statin at this time. (6) Atypical chest pain The pattern was not at all typical of angina. She was given aspirin. Two troponins were normal and she underwent a treadmill stress test with nuclear myocardial perfusion imaging. The nuclear images showed no areas of ischemia or infarction. During exercise and at peak, she had symptomatic runs of SVT at rates of 140 and 240. She thinks this pain is different than her GERD pain but Nitroglycerin sl seemed to help it, when given in the ED, but then it returned and again was constant. She thinks she notices this CP when she has bad posture, sitting in her chair, and she stated she will try to watch her posture and will see her chiropractor for further evaluation of this. - ALLERGIES Allergies/Adverse Reactions: Allergies Allergy/AdvReac Type Severity Reaction Status Date / Time Egg Derived Allergy Rash Verified 09/19/20 08:44 influenza virus vacc Allergy Itching Verified 09/19/20 08:44 trivalent, split - MEDICATIONS Home Medications: Ambulatory Orders Medication Instructions Recorded Confirmed No Known Home Medications 09/19/20 09/19/20 - PHYSICAL EXAM AT DISCHARGE General Appearance: positive: No acute distress, Alert Eyes Bilateral: positive: Normal inspection, PERRL, EOMI ENT: positive: ENT inspection nml, No signs of dehydration Neck: positive: Nml inspection, No JVD Respiratory: positive: No respiratory distress, Breath sounds nml Cardiovascular: positive: Regular rate & rhythm, No murmur Abdomen: positive: Non-tender, Nml bowel sounds, No distention Skin: positive: Warm, Dry Extremities: positive: Non-tender, No pedal edema Neurologic/Psychiatric: positive: Oriented x3 (Non-focal ) - LABS Result Diagrams: 09/21/20 06:40 09/21/20 06:40 - DIAGNOSTIC IMAGING Diagnostic Imaging Results: Final report reviewed
[2020-09-21 15:12] VITALS: BP 158/71
== END 2020-09-21 15:15 | disposition short-term general hospital (02) | DRG 309 ==
LOC: ED 08:18 → MS2 10:13 → OBSVTOIN 09-20 14:19
PROVIDERS: ADMIT Nurse Practitioner Gerontology; ATTEND Internal Medicine
DX: I49.5 Sick sinus syndrome (principal); R00.1 Bradycardia, unspecified; I47.1 Supraventricular tachycardia; Z87.891 Personal history of nicotine dependence; Z20.822 Contact with and (suspected) exposure to COVID-19; R07.89 Other chest pain; I10 Essential (primary) hypertension; E78.5 Hyperlipidemia, unspecified
CPT/HCPCS: 36415; 71045; 78452; 80048; 80053; 80061; 83690; 83735; 83880; 84443; 84484; 85025; 87631; 93005; 93017; 93306; 96372; 99284; 99285; A9270; A9500; G0378; J1650; J7120; 0202U; 83721

== ENCOUNTER 2020-09-21 16:51 | Outpatient (CLI) | payer MEDICARE | END 2020-09-21 16:52 | disposition short-term general hospital (02) | LOC: EMS 16:51 | PROVIDERS: ATTEND Internal Medicine | DX: R00.1 Bradycardia, unspecified (principal); I47.1 Supraventricular tachycardia | CPT/HCPCS: A0425; A0428 ==

== ENCOUNTER 2021-06-16 07:32 | Outpatient (CLI) | payer MEDICARE ==
[2021-06-16 15:18] LABS: BASOPHILS # (AUTO) 0.1 10^3/uL (0.0-0.1); BASOPHILS % (AUTO) 1.4 %; EOSINOPHILS # (AUTO) 0.2 10^3/uL (0.0-0.7); EOSINOPHILS % (AUTO) 4.1 %; HCT - HEMATOCRIT 43.2 % (37.0-47.0); HGB - HEMOGLOBIN 14.5 g/dL (12.0-16.0); LYMPHOCYTES # (AUTO) 2.4 10^3/uL (1.5-3.5); LYMPHOCYTES % (AUTO) 47.4 %; MEAN CORPUSCULAR HGB CONC 33.6 g/dL (32.0-36.0); MEAN CORPUSCULAR VOLUME 92.5 fL (81.0-99.0); MEAN PLATELET VOLUME 10.8 fL (7.9-10.8); MONOCYTES # (AUTO) 0.3 10^3/uL (0.0-1.0); MONOCYTES % (AUTO) 6.5 %; NEUTROPHILS # (AUTO) 2.1 10^3/uL (1.5-6.6); NEUTROPHILS % (AUTO) 40.4 %; PLT - PLATELET COUNT 286 10^3/uL (130-450); RED BLOOD COUNT 4.67 10^6/uL (4.20-5.40); RED CELL DISTRIBUTION WIDTH 11.8 % (12.0-15.0); WHITE BLOOD COUNT 5.1 x10^3/uL (4.8-10.8)
[2021-06-16 15:21] LABS: ALBUMIN 3.9 g/dL (3.2-5.5); ALBUMIN/GLOBULIN RATIO 1.6 (1.0-2.2); ALKALINE PHOSPHATASE 57 IU/L (42-121); ALT ALANINE AMINOTRANSFERASE 16 IU/L (10-60); AST ASPARTATE AMINOTRANSFERASE 20 IU/L (10-42); BILIRUBIN,TOTAL 0.9 mg/dL (0.2-1.0); BUN - BLOOD UREA NITROGEN 18 mg/dL (6-20); CALCIUM 8.9 mg/dL (8.5-10.3); CARBON DIOXIDE - CO2 26 mmol/L (21-32); CHLORIDE 101 mmol/L (101-111); CHOL/HDL RATIO 4.6 (<4.4); CHOLESTEROL 246 mg/dL; CREATININE 0.8 mg/dL (0.4-1.0); GFR - MDRD 69 (>89); GLUCOSE 94 mg/dL (70-100); HDL CHOLESTEROL 54 mg/dL; LDL CHOLESTEROL,CALCULATED 164 mg/dL; POTASSIUM 4.1 mmol/L (3.5-5.0); SODIUM 138 mmol/L (135-145); TOTAL PROTEIN 6.3 g/dL (6.7-8.2); TRIGLYCERIDES 140 mg/dL; VLDL CHOLESTEROL 28 mg/dL
[2021-06-16 15:34] LABS: THYROID STIMULATING HORMONE 1.77 uIU/mL (0.34-5.60)
[2021-06-16 15:36] LABS: FREE T3 3.09 pg/mL (2.5-3.9); FREE T4 (FREE THYROXINE) 0.84 ng/dL (0.58-1.64)
[2021-06-16 20:05] LABS: ESTIMATED AVERAGE GLUCOSE 117 mg/dL (70-100); HEMOGLOBIN A1c% 5.7 % (4.27-6.07)
== END 2021-06-16 07:33 | disposition home or self-care (01) ==
LOC: LAB.S 07:32
DX: E78.00 Pure hypercholesterolemia, unspecified (principal)
CPT/HCPCS: 36415; 80053; 80061; 83036; 83721; 84439; 84443; 84481; 85025

== ENCOUNTER 2022-01-14 07:37 | Outpatient (CLI) | payer MEDICARE ==
[2022-01-14 14:52] LABS: HCT - HEMATOCRIT 45.6 % (37.0-47.0); HGB - HEMOGLOBIN 14.9 g/dL (12.0-16.0); MEAN CORPUSCULAR HEMOGLOBIN 30.3 pg (27.0-31.0); MEAN CORPUSCULAR HGB CONC 32.7 g/dL (32.0-36.0); MEAN CORPUSCULAR VOLUME 92.7 fL (81.0-99.0); MEAN PLATELET VOLUME 9.7 fL (7.9-10.8); RED BLOOD COUNT 4.92 10^6/uL (4.20-5.40); RED CELL DISTRIBUTION WIDTH 12.5 % (12.0-15.0)
[2022-01-14 15:20] LABS: THYROID STIMULATING HORMONE 1.59 uIU/mL (0.34-5.60)
[2022-01-14 15:22] LABS: FREE T4 (FREE THYROXINE) 0.78 ng/dL (0.58-1.64)
[2022-01-14 15:23] LABS: FREE T3 3.12 pg/mL (2.5-3.9)
[2022-01-14 15:26] LABS: FERRITIN 78.2 ng/mL (11.0-306.8)
[2022-01-14 15:34] LABS: % IRON SATURATION 46 % (20-50); ALBUMIN 3.9 g/dL (3.2-5.5); ALBUMIN/GLOBULIN RATIO 1.6 (1.0-2.2); ALKALINE PHOSPHATASE 78 IU/L (42-121); ALT ALANINE AMINOTRANSFERASE 29 IU/L (10-60); AST ASPARTATE AMINOTRANSFERASE 21 IU/L (10-42); BILIRUBIN,TOTAL 0.8 mg/dL (0.2-1.0); BUN - BLOOD UREA NITROGEN 26 mg/dL (6-20); CHOL/HDL RATIO 4.9 (<4.4); CHOLESTEROL 308 mg/dL; CREATININE 0.8 mg/dL (0.4-1.0); CRP HIGH SENSITIVITY 3.5 mg/L; GFR - MDRD 69 (>89); HDL CHOLESTEROL 63 mg/dL; IRON 154 ug/dL (28-170); LDL CHOLESTEROL,CALCULATED 218 mg/dL; LDL/HDL RATIO 3.5 (<4.4); TOTAL IRON BINDING CAPACITY 337 ug/dL (250-450); TOTAL PROTEIN 6.3 g/dL (6.7-8.2); TRANSFERRIN 241 mg/dL (192-382); TRIGLYCERIDES 137 mg/dL; VLDL CHOLESTEROL 27 mg/dL
[2022-01-14 15:50] LABS: CALCIUM 9.1 mg/dL (8.5-10.3); CARBON DIOXIDE - CO2 28 mmol/L (21-32); CHLORIDE 102 mmol/L (101-111); GLUCOSE 91 mg/dL (70-100); POTASSIUM 4.1 mmol/L (3.5-5.0); SODIUM 136 mmol/L (135-145)
[2022-01-14 20:49] LABS: ESTIMATED AVERAGE GLUCOSE 111 mg/dL (70-100); HEMOGLOBIN A1c% 5.5 % (4.27-6.07)
[2022-01-15 08:10] LABS: HOMOCYST(E)INE 10.3 umol/L (0.0-19.2)
[2022-01-15 15:09] LABS: VITAMIN D 25-HYDROXY 35.3 ng/mL (30.0-100.0)
== END 2022-01-14 07:38 | disposition home or self-care (01) ==
LOC: LAB.S 07:37
PROVIDERS: ATTEND Family Medicine
DX: E78.5 Hyperlipidemia, unspecified (principal); I10 Essential (primary) hypertension; E03.9 Hypothyroidism, unspecified; E55.9 Vitamin D deficiency, unspecified; R53.83 Other fatigue; R73.09 Other abnormal glucose
CPT/HCPCS: 36415; 80053; 80061; 82306; 82626; 82728; 83036; 83090; 83540; 83721; 84439; 84443; 84466; 84480; 84481; 84482; 85027; 86141

== ENCOUNTER 2022-11-04 07:30 | Outpatient (CLI) | payer MEDICARE ==
[2022-11-04 15:13] LABS: BASOPHILS # (AUTO) 0.1 10^3/uL (0.0-0.1); BASOPHILS % (AUTO) 1.2 %; EOSINOPHILS # (AUTO) 0.2 10^3/uL (0.0-0.7); EOSINOPHILS % (AUTO) 3.6 %; HCT - HEMATOCRIT 44.2 % (37.0-47.0); HGB - HEMOGLOBIN 14.1 g/dL (12.0-16.0); LYMPHOCYTES # (AUTO) 2.6 10^3/uL (1.5-3.5); LYMPHOCYTES % (AUTO) 44.4 %; MEAN CORPUSCULAR HEMOGLOBIN 31.1 pg (27.0-31.0); MEAN CORPUSCULAR HGB CONC 31.9 g/dL (32.0-36.0); MEAN CORPUSCULAR VOLUME 97.4 fL (81.0-99.0); MEAN PLATELET VOLUME 10.1 fL (7.9-10.8); MONOCYTES # (AUTO) 0.4 10^3/uL (0.0-1.0); MONOCYTES % (AUTO) 7.4 %; NEUTROPHILS # (AUTO) 2.5 10^3/uL (1.5-6.6); NEUTROPHILS % (AUTO) 43.2 %; PLT - PLATELET COUNT 296 10^3/uL (130-450); RED BLOOD COUNT 4.54 10^6/uL (4.20-5.40); RED CELL DISTRIBUTION WIDTH 12.7 % (12.0-15.0); WHITE BLOOD COUNT 5.8 x10^3/uL (4.8-10.8)
[2022-11-04 15:45] LABS: ALBUMIN 3.9 g/dL (3.2-5.5); ALBUMIN/GLOBULIN RATIO 1.6 (1.0-2.2); ALKALINE PHOSPHATASE 73 IU/L (42-121); ALT ALANINE AMINOTRANSFERASE 18 IU/L (10-60); AST ASPARTATE AMINOTRANSFERASE 21 IU/L (10-42); BILIRUBIN,TOTAL 0.6 mg/dL (0.2-1.0); BUN - BLOOD UREA NITROGEN 17 mg/dL (6-20); CALCIUM 9.2 mg/dL (8.5-10.3); CARBON DIOXIDE - CO2 30 mmol/L (21-32); CHLORIDE 105 mmol/L (101-111); CHOLESTEROL 261 mg/dL; CREATININE 0.8 mg/dL (0.6-1.3); CRP HIGH SENSITIVITY 2.91 mg/L; GFR - MDRD 69 (>89); GLUCOSE 88 mg/dL (74-104); HDL CHOLESTEROL 66 mg/dL; LDL CHOLESTEROL,CALCULATED 160 mg/dL; LDL/HDL RATIO 2.4 (<4.4); POTASSIUM 4.2 mmol/L (3.5-4.5); SODIUM 139 mmol/L (135-145); TOTAL PROTEIN 6.3 g/dL (6.4-8.9); TRIGLYCERIDES 176 mg/dL (48-352); VLDL CHOLESTEROL 35 mg/dL
[2022-11-04 16:02] LABS: THYROID STIMULATING HORMONE 1.58 uIU/mL (0.34-5.60)
[2022-11-04 16:09] LABS: FERRITIN 37.7 ng/mL (11.0-306.8)
[2022-11-04 20:57] LABS: ESTIMATED AVERAGE GLUCOSE 108 mg/dL (70-100); HEMOGLOBIN A1c% 5.4 % (4.27-6.07)
[2022-11-05 06:11] LABS: VITAMIN D 25-HYDROXY 29.4 ng/mL (30.0-100.0)
[2022-11-09 01:07] LABS: REVERSE T3 SERUM 12.4 ng/dL (.)
== END 2022-11-04 07:31 | disposition home or self-care (01) ==
LOC: LAB.S 07:30
PROVIDERS: ATTEND Family Medicine
DX: E78.5 Hyperlipidemia, unspecified (principal); R53.83 Other fatigue; E03.9 Hypothyroidism, unspecified; R73.09 Other abnormal glucose; E55.9 Vitamin D deficiency, unspecified
CPT/HCPCS: 36415; 80053; 80061; 82306; 82626; 82728; 83036; 83090; 83721; 84439; 84443; 84480; 84481; 84482; 85025; 86141

== ENCOUNTER 2023-05-20 07:15 | Outpatient (CLI) | payer MEDICARE ==
[2023-05-20 14:33] LABS: BASOPHILS % (AUTO) 0.8 %; EOSINOPHILS # (AUTO) 0.1 10^3/uL (0.0-0.7); EOSINOPHILS % (AUTO) 2.6 %; HCT - HEMATOCRIT 44.2 % (37.0-47.0); HGB - HEMOGLOBIN 14.2 g/dL (12.0-16.0); LYMPHOCYTES # (AUTO) 1.9 10^3/uL (1.5-3.5); MEAN CORPUSCULAR HEMOGLOBIN 30.8 pg (27.0-31.0); MEAN CORPUSCULAR HGB CONC 32.1 g/dL (32.0-36.0); MEAN CORPUSCULAR VOLUME 95.9 fL (81.0-99.0); MEAN PLATELET VOLUME 10.1 fL (7.9-10.8); MONOCYTES # (AUTO) 0.5 10^3/uL (0.0-1.0); NEUTROPHILS # (AUTO) 2.5 10^3/uL (1.5-6.6); NEUTROPHILS % (AUTO) 49.4 %; PLT - PLATELET COUNT 285 10^3/uL (130-450); RED BLOOD COUNT 4.61 10^6/uL (4.20-5.40); RED CELL DISTRIBUTION WIDTH 12.1 % (12.0-15.0); WHITE BLOOD COUNT 5.1 x10^3/uL (4.8-10.8)
[2023-05-20 16:20] LABS: ALBUMIN 3.9 g/dL (3.2-5.5); ALBUMIN/GLOBULIN RATIO 1.5 (1.0-2.2); ALKALINE PHOSPHATASE 75 IU/L (42-121); ALT ALANINE AMINOTRANSFERASE 20 IU/L (10-60); AST ASPARTATE AMINOTRANSFERASE 24 IU/L (10-42); BILIRUBIN,TOTAL 0.8 mg/dL (0.2-1.0); BUN - BLOOD UREA NITROGEN 13 mg/dL (6-20); CALCIUM 9.2 mg/dL (8.5-10.3); CARBON DIOXIDE - CO2 29 mmol/L (21-32); CHLORIDE 104 mmol/L (101-111); CHOL/HDL RATIO 4.2 (<4.4); CHOLESTEROL 232 mg/dL; CREATININE 0.7 mg/dL (0.6-1.3); CRP HIGH SENSITIVITY 7.53 mg/L; GFR - MDRD 81 (>89); GLUCOSE 83 mg/dL (74-104); HDL CHOLESTEROL 55 mg/dL; LDL CHOLESTEROL,CALCULATED 151 mg/dL; LDL/HDL RATIO 2.7 (<4.4); SODIUM 138 mmol/L (135-145); TOTAL PROTEIN 6.5 g/dL (6.4-8.9); TRIGLYCERIDES 131 mg/dL (48-352); VLDL CHOLESTEROL 26 mg/dL
[2023-05-20 16:33] LABS: THYROID STIMULATING HORMONE 1.91 uIU/mL (0.34-5.60)
[2023-05-20 16:39] LABS: FERRITIN 70.5 ng/mL (11.0-306.8)
[2023-05-20 20:30] LABS: ESTIMATED AVERAGE GLUCOSE 111 mg/dL (70-100); HEMOGLOBIN A1c% 5.5 % (4.27-6.07)
[2023-05-21 09:09] LABS: VITAMIN D 25-HYDROXY 42.9 ng/mL (30.0-100.0)
== END 2023-05-20 07:16 | disposition home or self-care (01) ==
LOC: LAB.S 07:15
PROVIDERS: ATTEND Family Medicine
DX: E78.5 Hyperlipidemia, unspecified (principal); R53.83 Other fatigue; E55.9 Vitamin D deficiency, unspecified; R79.82 Elevated C-reactive protein (CRP); R00.1 Bradycardia, unspecified
CPT/HCPCS: 36415; 80053; 80061; 82306; 82626; 82728; 83036; 83090; 83721; 84439; 84443; 84480; 84481; 84482; 85025; 86141; 86900; 86901

== ENCOUNTER 2023-10-28 07:38 | Outpatient (CLI) | payer MEDICARE ==
--- NOTE | 2023-10-28 08:11 | XRAY Report ---
PROCEDURE: Chest 2V INDICATIONS: SOB, COUGH, HANSEN X 4-5 DAYS TECHNIQUE: 2 views of the chest were acquired. COMPARISON: 05/19/2018 and 09/19/2020. FINDINGS: Surgical changes and devices: Postsurgical changes are noted in left axilla and left breast. Lungs and pleura: No pleural effusions or pneumothorax. Lungs are clear. Mediastinum: Mediastinal contours appear normal. Heart size is normal. Bones and chest wall: No suspicious bony lesions. Overlying soft tissues appear unremarkable. IMPRESSION: No acute cardiopulmonary process. Reviewed by: Elliott Cortez MD on 10/28/2023 8:10 AM PDT Approved by: Elliott Cortez MD on 10/28/2023 8:10 AM PDT Station ID: [id number]
== END 2023-10-28 07:39 | disposition home or self-care (01) ==
LOC: DI.S 07:38
PROVIDERS: ATTEND Family Medicine
DX: R06.09 Other forms of dyspnea (principal); R05.9 Cough, unspecified